=== PATIENT | female | born 1970 | race Caucasian/White ===

== ENCOUNTER 2017-10-01 23:59 | Emergency (ER) | payer OTHER ==
[~2017-10-01] VITALS: Ht 170.2 cm; Wt 99.8 kg
--- NOTE | 2017-10-02 00:20 | ED UPPER/LOWER EXTREMITY COMPL ---
History of Present Illness General Chief Complaint: Lower Extremity Injury Stated Complaint: L LEG INJURY Source: patient Exam Limitations: no limitations Vital Signs & Intake/Output Vital Signs & Intake/Output Vital Signs Date Time Temp Pulse Resp B/P B/P Pulse O2 O2 Flow FiO2 Mean Ox Delivery Rate 10/02 0115 97.8 97 18 142/87 97 Room Air 10/02 0015 97 Room Air 10/02 0008 97.3 103 16 150/95 96 Room Air Room Air Allergies Coded Allergies: MDX - Penicillin V (From Penicillin V Potassium) (03/01/02) Reconcile Medications Diclofenac Sodium 75 MG TABLET. 1 TAB PO BID PRN PAIN Triage Note: 47YO FEMALE TO TRIAGE W/CO L KNEE PAIN SP FALL DOWN 3 STEPS TONITE. Triage Nurses Notes Reviewed? yes HPI: Patient presents for evaluation of a leg injury status post prior to arrival. Patient states that she tripped down the last 3 cement stairs at her home. Patient is unsure how she landed. After the fall she had relatively abrupt onset of left knee pain and swelling with an inability to ambulate secondary to not only pain but feeling of instability in the knee. Past History Travel History Traveled to [place] past 21 day No Medical History Any Pertinent Medical History? see below for history Cardiovascular: hyperlipidemia Endocrine: hypothyroidism Surgical History Surgical History: non-contributory Psychosocial History What is your primary language Icelandic Tobacco Use: Quit >30 days ago Family History Hx Contributory? No Review of Systems Review of Systems Constitutional: Reports: no symptoms. EENTM: Reports: no symptoms. Respiratory: Reports: no symptoms. Cardiovascular: Reports: no symptoms. Gastrointestinal/Abdominal: Reports: no symptoms. Genitourinary: Reports: no symptoms. Musculoskeletal: Reports: see HPI. Skin: Reports: no symptoms. Neurological/Psychological: Reports: no symptoms. Hematologic/Endocrine: Reports: no symptoms. Immunological: Reports: no symptoms. All Other Systems: Reviewed and Negative Physical Exam Physical Exam General Appearance: SEE BELOW Comments: Gen.: Well-nourished, well-developed, no acute respiratory distress. Head: Normocephalic, atraumatic. Eyes: Normal inspection bilaterally Ears: Normal inspection bilaterally Nose: Normal inspection Throat/mouth : Moist mucosa Neck: Supple, full range of motion, no goiter Heart: Regular rate and rhythm Lungs: Quiet respirations Back: Normal range of motion Extremities: Left knee: Clinical effusion present with mild tenderness diffusely. There is a mild anterior drawer sign present. The left lower cavity is neurovascularly intact distally and nontender. Neurologic: Cranial nerves grossly intact, speech is clear Skin: warm and dry Psychiatric: Calm, cooperative, no apparent delusions or hallucinations Progress Differential Diagnosis: sprain, strain, fracture, dislocation, ACL/PCL tear Plan of Care: Orders Procedure Date/time Status Durable Medical Equipment 10/02 110 Active Diagnostic Imaging: Discussed w/RAD: CT Scan. Radiology Impression: PATIENT: CYNTHIA BROWN PRESENT AGE: 47 PATIENT ACCOUNT NO: [id number] : 71 LOCATION: [facility] ORDERING PHYSICIAN: Randell Cerda MD SERVICE DATE: 10/02/17 EXAM TYPE: CAT - CT LOWER EXT WO IV CONTRAST EXAMINATION: CT LOWER EXTREMITY WITHOUT CONTRAST, LEFT CLINICAL INFORMATION: Pain. Concern for ACL tear. COMPARISON: None TECHNIQUE: Contiguous helical images of the knee were obtained without IV contrast. DLP: 344 mGy-cm FINDINGS: There is a small knee joint effusion. There are no discernible fractures. There are no dislocations. There is no significant soft tissue swelling. IMPRESSION: Small nonspecific knee joint effusion. No discernible fractures. Please note that a CT is inadequate for evaluation of an ACL injury. If there is persistent clinical concern, consider correlation with an appropriate modality, such as MRI. DICTATED BY: Antony Parham MD DATE/TIME DICTATED:10/02/1754 ANIMAL SHELTER WORKER:JOSHUA DATE/TIME TRANSCRIBED:54 CONFIDENTIAL, DO NOT COPY WITHOUT APPROPRIATE AUTHORIZATION. < Electronically signed in Other Vendor System> SIGNED BY: Antony Parham MD 10/02/17 0103 Comments: 10/02/2017 1:19:37 AM I have updated Cynthia on her test results. She will follow- up with her job placement specialist in [place] on Tuesday. Departure Departure Disposition: HOME OR SELF CARE Condition: Stable Clinical Impression Primary Impression: Left knee sprain Qualifiers: Encounter type: initial encounter Involved ligament of knee: unspecified ligament Qualified Code: S83.92XA - Sprain of unspecified site of left knee, initial encounter Secondary Impressions: Left ACL tear Qualifiers: Encounter type: initial encounter Qualified Code: S83.512A - Sprain of anterior cruciate ligament of left knee, initial encounter Referrals: Tish Dejesus MD (PCP/Family) Additional Instructions: Ice and elevation of the left knee over the next 48-72 hours. Wear the knee immobilizer until you follow up with your orthopedic surgeon (contact the office on Tuesday and arrange for follow-up appointment during the week). Notify your primary care physician of this emergency department visit and treatment plan. Return if any concerns or sudden worsening. Please note that there might be incidental findings in your evaluation that are unrelated to the current emergency department visit. Please notify your primary care doctor about this emergency department visit in order to obtain and review all of the testing performed so that these incidental findings can be monitored as needed. If you had an x-ray performed, please understand that some fractures or other findings may not be seen on the initial set of x-rays. If your symptoms persist you might need a repeat set of x-rays to check for such a fracture. If you had a laceration evaluated, please understand that foreign bodies such as glass or wood may not be visible to the naked eye or on plain x-rays. If the wound becomes red, swollen, increasingly more painful or if there is any drainage from the wound, please have it reevaluated by a physician for the possibility of a retained foreign body. If you're unable to follow up as outlined in the discharge instructions please return to the emergency department. Thank you for choosing the [facility] Emergency Department for your care. It was a pleasure to serve you today. Randell Cerda M.D. [facility] Departure Forms: Customer Survey General Discharge Information Prescriptions: Current Visit Scripts Diclofenac Sodium 1 TAB PO BID PRN PAIN #14 TAB
--- NOTE | 2017-10-02 01:03 | CT SCAN REPORT ---
EXAMINATION: CT LOWER EXTREMITY WITHOUT CONTRAST, LEFT CLINICAL INFORMATION: Pain. Concern for ACL tear. COMPARISON: None TECHNIQUE: Contiguous helical images of the knee were obtained without IV contrast. DLP: 344 mGy-cm FINDINGS: There is a small knee joint effusion. There are no discernible fractures. There are no dislocations. There is no significant soft tissue swelling. IMPRESSION: Small nonspecific knee joint effusion. No discernible fractures. Please note that a CT is inadequate for evaluation of an ACL injury. If there is persistent clinical concern, consider correlation with an appropriate modality, such as MRI.
[2017-10-02 01:15] VITALS: BP 142/87
[2017-10-02] MEDS ORDERED: DICLOFENAC SODI75 M2 PO (01:21)
== END 2017-10-02 01:32 ==
LOC: ERH 23:59
DX: S83.512A Sprain of anterior cruciate ligament of left knee, initial encounter (principal); W10.9XXA Fall (on) (from) unspecified stairs and steps, initial encounter; Y92.009 Unspecified place in unspecified non-institutional (private) residence as the place of occurrence of the external cause